=== PATIENT | male | born 1970 | race Two or more races ===

== ENCOUNTER 2021-11-18 12:55 | Emergency (ER) | payer SELFPAY ==
[2021-11-18 13:05] VITALS: BP 117/68; PULSE 87; RESP 20; TEMP 98; BMI 27.4
[2021-11-18] MEDS ORDERED: LIDOCAINE 5% TOPICAL PATCH TP ONE (14:07)
[2021-11-18] MEDS ORDERED: KETOROLAC TROMETHAMINE 60 MG/2 ML VIAL IM ONE (14:07)
[2021-11-18] MEDS ORDERED: LIDOCAINE 5% TOPICAL PATCH ONE (14:18)
[2021-11-18] MEDS ORDERED: KETOROLAC TROMETHAMINE 30 MG/1 ML VIAL ONE (14:18)
== END 2021-11-18 15:55 | disposition home or self-care (01) ==
LOC: JERFT 12:55
PROC: 3E0233Z Introduction of Anti-inflammatory into Muscle, Percutaneous Approach (ICD-10-PCS; principal; 2021-11-18)
DX: M54.50 Low back pain, unspecified (principal)
CPT/HCPCS: 72040-TC; 72100-TC-FY; 99284-25

== ENCOUNTER 2023-03-12 15:54 | Emergency (ER) | payer OTHER ==
[2023-03-12 15:59] VITALS: BP 118/62; PULSE 84; RESP 18; TEMP 98.6; BMI 319.0
== END 2023-03-12 16:37 | disposition home or self-care (01) ==
LOC: JERFT 15:54
DX: Z48.02 Encounter for removal of sutures (principal)
CPT/HCPCS: 99281-25